=== PATIENT | male | born 1960 | race Caucasian/White ===

== ENCOUNTER 2016-09-26 11:27 | Day surgery (SDC) | payer BC ==
[~2016-09-26 11:27] MED LIST: Midazolam 1 MG/ML 2 ML SDV ONE; Propofol 200 MG/20 ML SDV ONE; fentaNYL 100 MCG/2 ML SDV ONE
[2016-09-26] MEDS ORDERED: Sodium Chloride 0.9% 1,000 ML IV SCH (12:00)
[2016-09-26 13:24] VITALS: BP 149/96
--- NOTE | 2016-09-27 12:57 | OR ---
DATE OF PROCEDURE: 09/26/2016 PROCEDURE: Esophagogastroduodenoscopy. FINDINGS: Oral thrush. COMPLICATIONS: None. MEDICAL REPRESENTATIVE: None. PREOPERATIVE DIAGNOSES: Dysphagia. POSTOPERATIVE DIAGNOSIS: Dysphagia. RISKS: Risks, benefits, alternatives, and limitations including, but not limited to infection, bleeding, and perforation were explained to the patient and then wished to proceed. DESCRIPTION OF PROCEDURE: The patient was placed in left lateral decubitus position. The EGD scope was introduced and advanced atraumatically to the second part of the duodenum. On retroflex, there was no hernia. The GE junction was normal. In the proximal and distal esophagus, there were patulous areas consistent with thrush. No other abnormalities were noted. The patient tolerated the procedure well. Raymundo Bell MD /[id number]
== END 2016-09-26 13:31 | disposition home or self-care (01) ==
LOC: JP.SDS 11:27
PROVIDERS: ATTEND Surgery
DX: R13.10 Dysphagia, unspecified (principal); K21.9 Gastro-esophageal reflux disease without esophagitis; Z88.5 Allergy status to narcotic agent; Z88.8 Allergy status to other drugs, medicaments and biological substances
CPT/HCPCS: 43235; J2250; J2704; J3010; J7040